=== PATIENT | female | born 1955 | race Caucasian/White ===

== ENCOUNTER → 2021-12-01 | Outpatient (REF) | payer MEDICARE, OTHER | LOC: M LAB REF 16:23 | PROVIDERS: ATTEND Nurse Practitioner Adult Health | DX: N39.0 Urinary tract infection, site not specified (principal) ==

== ENCOUNTER → 2022-04-04 | Outpatient (REF) | payer MEDICARE, OTHER | LOC: M LAB REF 16:15 | PROVIDERS: ATTEND Nurse Practitioner Adult Health | DX: D69.6 Thrombocytopenia, unspecified (principal) ==

== ENCOUNTER → 2025-09-09 | Outpatient (REF) | payer MEDICARE, OTHER ==
[2025-09-10 13:59] LABS: TOTAL T3 117.0 NG/DL (60.0-181.0)
== END ==
LOC: M LAB REF 12:47
PROVIDERS: ATTEND Physician Assistant Medical
DX: R53.83 Other fatigue (principal); R07.89 Other chest pain